=== PATIENT | female | born 1975 | race Caucasian/White ===

== ENCOUNTER → 2021-01-15 | Outpatient (CLI) | payer MEDICARE, MEDICAID | LOC: RAD 17:14 | DX: R06.00 Dyspnea, unspecified (principal); Z86.16 Personal history of COVID-19 ==

== ENCOUNTER → 2021-01-26 | Outpatient (CLI) | payer MEDICARE, MEDICAID ==
[2021-01-26 16:53] LABS: ALBUMIN 4.2 g/dL (3.5-5.0); POTASSIUM 3.5 mmol/L (3.5-5.1); SODIUM 135 mmol/L (136-145)
[2021-01-26 16:54] LABS: CALCIUM 9.2 mg/dL (8.3-10.5)
[2021-01-26 16:56] LABS: GLUCOSE 136 mg/dL (65-105)
[2021-01-26 16:57] LABS: CARBON DIOXIDE 23 mmol/L (22-29); TOTAL BILIRUBIN 0.3 mg/dL (0.2-1.2)
[2021-01-26 17:01] LABS: AST-SGOT 16 U/L (5-34)
[2021-01-26 17:02] LABS: ALT/SGPT 19 U/L (0-55)
[2021-01-26 17:39] LABS: TROPONIN-I < 0.03 ng/mL (<0.030)
[2021-01-26 17:39] LABS: URINE APPEARANCE CLEAR; URINE BILIRUBIN NEGATIVE (NEGATIVE); URINE BLOOD 50 ery/uL (NEGATIVE); URINE COLOR YELLOW; URINE GLUCOSE NEGATIVE (NEGATIVE); URINE KETONE NEGATIVE (NEGATIVE); URINE LEUKOCYTE ESTERASE NEGATIVE (NEGATIVE); URINE NITRATE NEGATIVE (NEGATIVE); URINE PROTEIN(semi-quant) NEGATIVE (NEGATIVE); URINE UROBILINOGEN NORMAL (NORMAL)
[2021-01-26 17:40] LABS: CLUE CELLS NOT OBSERVED (Not Observd); URINE WBC 0-1 /hpf (0-3)
[2021-01-26 18:21] LABS: BASO # 0.04 (0.02-0.10); EOS # 0.08 (0.04-0.40); EOS % 0.8 % (1.0-5.0); HEMATOCRIT 35.1 % (37.0-47.0); LYMPH# 2.08 (1.50-4.00); MEAN CELL VOLUME 86 fl (78-100); MEAN CORPUSCULAR HEMOGLOBIN 29 pg (27-31); MEAN CORPUSCULAR HGB CONC 34 g/dL (33-37); MEAN PLATELET VOLUME 10.9 fl (7.4-10.4); MONO # 0.57 (0.20-0.80); NEU # 6.83 (1.40-6.50); PLATELET COUNT 403 K/mm3 (130-400); RED BLOOD COUNT 4.09 M/mm3 (4.10-5.30); RED CELL DISTRIBUTION WIDTH 12.2 % (11.5-14.5); WHITE BLOOD COUNT 9.6 K/mm3 (4.8-10.8)
[2021-01-26 18:25] LABS: ERYTHROCYTE SEDIMENTATION RATE 31 mm/hr (0-20)
[2021-01-29 22:45] LABS: ADRENOCORTICOTROPIC HORMONE 19 pg/mL (5-27)
== END ==
LOC: LAB 16:19
PROVIDERS: Nurse Practitioner
DX: R06.00 Dyspnea, unspecified (principal); E34.3 Short stature due to endocrine disorder; K90.9 Intestinal malabsorption, unspecified; N76.0 Acute vaginitis
CPT/HCPCS: Q0111

== ENCOUNTER → 2021-02-01 | Outpatient (CLI) | payer MEDICARE, MEDICAID | LOC: LAB 16:07 | PROVIDERS: Internal Medicine | DX: F32.81 Premenstrual dysphoric disorder (principal) ==

== ENCOUNTER → 2021-02-02 | Outpatient (CLI) | payer MEDICARE, MEDICAID | LOC: RAD 10:47 | DX: N85.2 Hypertrophy of uterus (principal); Z98.2 Presence of cerebrospinal fluid drainage device ==

== ENCOUNTER → 2021-02-17 | Outpatient (CLI) | payer MEDICARE, MEDICAID | LOC: VAS 10:40 → RAD 10:45 → VAS 10:45 | DX: R06.00 Dyspnea, unspecified (principal) ==